=== PATIENT | male | born 1960 | race Caucasian/White ===

== ENCOUNTER → 2016-04-09 | Outpatient (CLI) | payer OTHER ==
[~2016-04-09] MED LIST: "\\\"CHOLESTEROL MED\\\""; ASPIRIN81 M2 PO; ATORVASTATIN CA20 MG PO; GLUCOPHAGE500 M1 PO; GLUCOPHAGE500 MG PO; HUMULIN 70100 UNIT/1 SUBQ; HUMULIN 70100 UNITS/ SUBQ; INSULIN SYR1 DIS.S10 MC; KLONOPIN1 MG PO; LORTAB 10/500 T1 TAB PO; METFORMIN HCL500 M1 PO; METFORMIN PO; NAPROSYN500 MG PO; NORCO 10-325 TA1 TAB PO; NOVOLIN 70/30 V10 M1 SQ; PERCOCET5/325 PO; PRAVACHOL20 MG PO; PRILOSEC PO; RANITIDINE HCL150 M1 PO; ZESTRIL2.5 M1 PO; [UNRECOGNIZED DRUG - REMARK]
--- NOTE | ~2016-04-09 | CR151 ---
[facility] A Service of [facility] & [facility] RADIOLOGY TEXT RESULTS PATIENT: JOHANNY GARCIA LOCATION: [facility] : 58 UNIT #: [id number] AGE: [address]: PATRICK CHENEY PA-C SEX: M ORDER DR: [id number] [facility] [address] [place], [place] [address] [id number] O MR#: [id number] Acc #: [id number] NAME: JOHANNY GARCIA : 1960 SEX: M STUDY DATE/TIME: 04/09/2016 15:55 UNIT: [facility] ROOM: STUDY DESCRIPTION: CR Hip Min 2 Views Rt Attending Physician: Patrick Cheney Pa-C Ordering Physician: Hair Prieto M.D. Primary Care Physician: Jeannette Barcenas M.D. MEDICAL IMAGING REPORT This report is preliminary unless electronic signature is present EXAM Right hip and pelvis. HISTORY Right hip pain x1 year. FINDINGS AP pelvis and frog lateral view of the right hip demonstrates mild osteoarthritic change of the right hip with a small osteophyte inferior aspect of the humeral head. Bone mineralization appears normal. No fracture dislocation. Degenerative change is seen in the lower lumbar spine. Surgical clips are seen in the mid abdominal region, suggesting prior hernia repair. Pelvic calcifications noted compatible with phleboliths. IMPRESSION Mild osteoarthritic changes of the right hip. No fracture or underlying pathologic lesion. Dictated by... Dianna Perez M.D. THIS IS AN ELECTRONICALLY VERIFIED REPORT Dianna Perez M.D. at 04/10/2016 5:02 PM BARNEY/socrates TD: 04/10/2016 10:35 JOB #: [id number] MEDICAL IMAGING REPORT COPY
== END | disposition home or self-care (01) ==
LOC: CRAD 15:38
DX: M25.551 Pain in right hip (principal)
CPT/HCPCS: 73502

== ENCOUNTER → 2016-04-28 | Outpatient (CLI) | payer OTHER ==
--- NOTE | ~2016-04-28 | CT138 ---
[facility] A Service of [facility] RADIOLOGY TEXT RESULTS PATIENT: JOHANNY GARCIA LOCATION: [facility] : 58 UNIT #: [id number] AGE: [address]: PATRICK CHENEY PA-C SEX: M ORDER DR: [id number] [facility] [address] [place], [place] [address] [id number] O MR#: [id number] Acc #: [id number] NAME: JOHANNY GARCIA : 1960 SEX: M STUDY DATE/TIME: 04/28/2016 11:54 UNIT: [facility] ROOM: STUDY DESCRIPTION: CT Lung screening initial Attending Physician: Patirck Cheney Pa-C Ordering Physician: Hair Prieto M.D. Primary Care Physician: Theo Flowers M.D. MEDICAL IMAGING REPORT This report is preliminary unless electronic signature is present EXAM CT lung cancer screening. DATE OF EXAM 04/28/2016 INDICATIONS Lung cancer screening. 35 pack year smoking history. PROCEDURE Unenhanced CT of the chest performed per lung cancer screening protocol. CT-DI 2.95 mGy, total DLP 123 mGy-cm. COMPARISON CTA of the chest from 11/17/2012. TECHNIQUE NOTE: This CT exam was performed with one or more of the following radiation dose reduction techniques: automatic exposure control, adjustment of mA and/or kV according to patient size, and iterative reconstruction. FINDINGS Significant emphysema. No dense consolidation. Focal scarring or atelectasis in the medial right middle lobe. There is a new 5 mm subpleural nodule in the medial right lower lobe. A 6 mm nodule in the posterior right lung base is stable in keeping with benign finding. A 6 mm nodule in the medial left lower lobe is stable in keeping with benign finding. There are other smaller nodules in the left lower lobe that are stable. 2-3 mm nodule left upper lobe is unchanged. No adenopathy. Left adrenal nodule is stable and represents a benign adenoma. No acute findings in the included upper abdomen. No aggressive [facility] A Service [facility] RADIOLOGY TEXT RESULTS PATIENT: JOHANNY GARCIA LOCATION: [facility] : 58 UNIT #: [id number] AGE: [address]: PATRICK CHENEY PA-C SEX: M ORDER DR: appearing bone lesion. IMPRESSION 1. Severe emphysema. 2. Scattered nodules in the right and left lung detailed above are unchanged from 2013 in keeping with benign finding. 3. There is a new 5 mm nodule in the medial right lower lobe. 4. LungRADS category 3, probably benign finding. Recommend patient return for a 6-month follow up low-dose chest CT. 5. Other incidental findings are detailed above. Dictated by... Ottoniel An M.D. THIS IS AN ELECTRONICALLY VERIFIED REPORT Ottoniel An M.D. at 05/01/2016 7:21 AM CIELO/valarie TD: 04/28/2016 18:16 JOB #: [id number] MEDICAL IMAGING REPORT COPY
== END | disposition home or self-care (01) ==
LOC: CNUC 11:12
DX: F17.210 Nicotine dependence, cigarettes, uncomplicated (principal); J43.9 Emphysema, unspecified; R91.8 Other nonspecific abnormal finding of lung field
CPT/HCPCS: G0297

== ENCOUNTER 2016-09-01 15:37 | Emergency (ER) | payer OTHER ==
[~2016-09-01] VITALS: Ht 182.9 cm; Wt 90.7 kg
--- NOTE | ~2016-09-01 | EKG ---
PATIENT: JOHANNY GARCIA UNIT #: [id number] Ventricular Rate: 88 BPM Atrial Rate: 88 BPM P-R Interval: 166 ms QRS Duration: 90 ms Q-T Interval: 346 ms QTC Calculation(Bezet): 418 ms P Lawrence: 63 degrees Calculated R Lawrence: -18 degrees Calculated T Lawrence: 66 degrees Diagnosis Line: Sinus rhythm with Premature atrial complexes Diagnosis Line: Otherwise normal ECG Diagnosis Line: When compared with ECG of 08-JUL-2013 14:41, Diagnosis Line: Premature atrial complexes are now Present Diagnosis Line: Confirmed by LIANA ROBISON MD ([id number]) on Diagnosis Line: 09/03/2016 11:14:19 PM INTERPRETING MD: RICKI DAVE
[2016-09-01 17:07] LABS: BASOPHIL# 0.1 X10e3 (0-0.3); BASOPHIL% 0.7 % (0-2.5); EOSINOPHIL# 0.1 X10e3 (0-0.7); EOSINOPHIL% 0.9 % (0.0-7.0); HEMATOCRIT 39.5 % (38.0-50.0); HEMOGLOBIN 12.6 gm/dL (13.0-16.0); LYMPHOCYTE% 29.3 % (17.0-45.0); MEAN CELL VOLUME 84.7 FL (83-96); MEAN CORPUSCULAR HEMOGLOBIN 27.1 PG (28-34); MONOCYTE# 0.9 X10e3 (0-1.0); MONOCYTE% 9.1 % (3.0-12.0); NEUTROPHIL# 6.1 X10e3 (1.5-7.1); PLATELET COUNT 377 X10e3 (140-420); RED BLOOD COUNT 4.67 X10e (3.90-5.60); RED CELL DISTRIBUTION WIDTH 13.7 % (11.0-15.5); WHITE BLOOD COUNT 10.2 X10e3 (4.0-10.5)
[2016-09-01 17:11] LABS: DIFF IND NO
[2016-09-01 17:52] LABS: ALBUMIN SERUM 4.4 g/dL (3.5-5.0); BILIRUBIN, DIRECT 0.1 mg/dL (0.0-0.2); BILIRUBIN,INDIRECT 0.2 mg/dL (0.0-0.9); BILIRUBIN,TOTAL 0.3 mg/dL (0.2-2.0); BUN/CREATININE RATIO 15.71; CALCIUM SERUM 9.7 mg/dL (8.4-10.2); CREATININE SERUM 1.4 mg/dL (0.6-1.4); GLOM FILT RATE Estimated 55.4 mL/min (>60); POTASSIUM 3.4 mmol/L (3.5-5.1); PROTEIN TOTAL SERUM 7.8 g/dL (6.0-8.3)
== END 2016-09-01 18:40 | disposition home or self-care (01) ==
LOC: CED 15:37
PROVIDERS: Emergency Medicine
DX: E86.0 Dehydration (principal); F15.10 Other stimulant abuse, uncomplicated; F41.9 Anxiety disorder, unspecified; E11.9 Type 2 diabetes mellitus without complications; Z79.899 Other long term (current) drug therapy
CPT/HCPCS: 36415; 80048; 80076; 82550; 82947; 85025; 93005; 96360; 99284